=== PATIENT | female | born 1945 | race Caucasian/White ===

== ENCOUNTER 2016-05-11 14:27 | Inpatient (IN) | payer MEDICARE, OTHER ==
[~2016-05-11] VITALS: Ht 165.1 cm; Wt 70.3 kg
[~2016-05-11 14:27] MED LIST: CARAFATE1 G PO; HYDROCODONE-APA1 TAB PO; PEPCID20 MG PO; PHENERGAN25 M1 PO; PRILOSEC20 MG PO; PRINIVIL20 MG PO; VOLTAREN75 MG PO
--- NOTE | 2016-05-11 14:30 | NUR ---
RECEIVED TO ROOM 2212 AT THIS TIME FROM [facility] VIA [employer]. PT AMBULATED TO THE STRETCHER WITHOUT ISSUE. ASSISTED INTO HOSPITAL GOWN. ASSESSMENT AND HISTORY OBTAINED PER FLOWSHEET. VITAL SIGNS STABLE. DENIES NEEDS AT THIS TIME. CALL LIGHT IN REACH, ORIENTED PT TO ROOM AND NURSING UNIT. WILL CONTINUE WITH PLAN OF CARE.
[2016-05-11] MEDS ORDERED: MAGNESIUM OXID250 MG PO (14:38)
[2016-05-11] MEDS ORDERED: MELATONIN5 MG PO (14:38)
[2016-05-11] MEDS ORDERED: OMEPRAZOLE40 MG PO (14:39)
[2016-05-11 14:57] VITALS: BP 155/74; BMI 25.8
--- NOTE | 2016-05-11 16:26 | NUR ---
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 IV TO LEFT FOREARM PATENT. DENIES NEEDS AT PRESENT TIME. CALL LIGHT IN REACH, WILL CONTINUE WITH PLAN OF CARE.
--- NOTE | 2016-05-11 16:47 | NUR ---
VISITORS IN ROOM.PT WITHOUT DISTRESS.CALL LIGHT IN REACH
--- NOTE | 2016-05-11 19:15 | NUR ---
BEDSIDE REPORT RECEIVED AND CARE OF PT ASSUMED. PT LYING IN SUPINE POSITION VISITING WITH FAMILY MEMBERS. IV IN LEFT FA PATENT WITH NS INFUSING AT 125 ML / HR. COMPLAINT EVALUATION SUPERVISOR / DILAUDID IN USE FOR PAIN CONTROL. WILL MONITOR CLOSELY FOR NEEDS. CALL LIGHT WITHIN REACH.
[2016-05-11 20:48] VITALS: BP 132/60
--- NOTE | 2016-05-11 22:19 | NUR ---
HS MEDICATIONS GIVEN. WILL CONTINUE TO MONITOR FOR NEEDS.
--- NOTE | 2016-05-12 02:40 | NUR ---
PT RESTING IN SUPINE POSITION WITH EYES CLOSED AND UNLABORED BREATING. SIDE RAILS UP X2 FOR SAFETY.
[2016-05-12 04:27] VITALS: BP 143/57
[2016-05-12 06:33] LABS: ANION GAP 11.1 mmol/L (8-16); CALCIUM 8.3 mg/dL (8.5-10.1); CARBON DIOXIDE 26.5 mmol/L (21.0-32.0); MAGNESIUM - SERUM 2.1 mg/dL (1.8-2.4); PHOSPHOROUS 4.1 mg/dL (2.5-4.9); POTASSIUM - SERUM 3.6 mmol/L (3.5-5.1)
[2016-05-12 07:17] LABS: BASOPHILS 0.4 % (0.0-2.0); EOSINOPHILS 1.4 % (0-7); HEMATOCRIT 33.2 % (36.0-48.0); HEMOGLOBIN 10.6 g/dL (12-16); IMMATURE GRANULOCYTES 0.1 % (0-5); LYMPHOCYTES 23.4 % (15-50); MCH 29.9 pg (26.0-34.0); MCHC 31.9 g/dL (31.0-37.0); MCV 93.5 fL (80.0-100.0); MEAN PLATELET VOLUME 10.6 fL (7.4-10.4); MONOCYTES 14.8 % (2-11); NEUTROPHILS 59.9 % (40-80); RBC 3.55 10x6/uL (4.00-5.40); RDW 14.5 % (11.5-14.5); WBC 7.6 10x3/uL (4.8-10.8)
--- NOTE | 2016-05-12 07:25 | NUR ---
PATIENT RECEIVED ALERT IN LOW CAPUTO POSITION WATCHING TV. RESPIRATIONS EVEN AND UNLABORED. DENIES NEEDS. SIDE RAILS UP X2. BED IN LOW POSITION. CALL LIGHT AND LINING CLEANER BUTTON IN REACH.
[2016-05-12 07:35] LABS: PLATELET COUNT 206 10x3/uL (130-400)
[2016-05-12 08:07] VITALS: BP 146/60
--- NOTE | 2016-05-12 09:15 | NUR ---
PATIENT IN MID CAPUTO POSITION RESTING WITH EYES CLOSED. RESPIRATIONS EVEN AND UNLABORED. SIDE RAILS UP X2. BED IN LOW POSITION. CALL LIGHT IN REACH.
[2016-05-12 11:56] VITALS: BP 143/63
--- NOTE | 2016-05-12 12:00 | NUR ---
PATIENT ALERT IN BED WITH CELL PHONE IN HAND. DENIES NEEDS. SIDE RAILS UP X2. BED IN LOW POSITION. CALL LIGHT IN REACH.
[2016-05-12 12:04] VITALS: Ht 165.1 cm; Wt 70.3 kg
--- NOTE | 2016-05-12 15:00 | NUR ---
PATIENT SITTING UP IN CHAIR AT BEDSIDE WITH FAMILY PRESENT. SCHEDULED MEDICATION ADMINISTERED. DENIES NEEDS. CALL LIGHT IN REACH.
--- NOTE | 2016-05-12 15:13 | NUR ---
ALERT IN BED WATCHING TV. RESPIRATIONS EVEN AND UNLABORED. SCHEDULED MEDICATION ADMINISTERED. WANTING ICE CHIPS OR SOMETHING TO DRINK. WILL AWAIT PHYSICIAN FOR ORDERS. BED IN LOW POSITION. CALL LIGHT IN REACH. SIDE RAILS UP X2
[2016-05-12 15:37] VITALS: BP 155/69
--- NOTE | 2016-05-12 16:53 | NUR ---
C/O HEADACHE. TYLENOL PER PRN ORDER. DENIES FURTHER NEEDS. SIDE RAILS UP X2. BED IN LOW POSITION. CALL LIGHT IN REACH.
[2016-05-12 20:00] VITALS: BP 170/76
[2016-05-13] VITALS: BP 174/69
--- NOTE | 2016-05-13 00:26 | NUR ---
PT CONTINUES TO BE NAUSEATED. HAVE GIVEN ZOFRAN TWICE THIS SHIFT. REPORTS ONE EPISODE OF ACID REFLUX. DENIES PAIN. BP'S RUNNING HIGH. GIVING VASOTEC PRN ORDERED. WILL CONTINUE TO MONITOR.
[2016-05-13 05:41] LABS: BASOPHILS 0.3 % (0.0-2.0); EOSINOPHILS 1.3 % (0-7); HEMATOCRIT 35.2 % (36.0-48.0); HEMOGLOBIN 11.3 g/dL (12-16); IMMATURE GRANULOCYTES 0.3 % (0-5); LYMPHOCYTES 22.6 % (15-50); MCH 29.8 pg (26.0-34.0); MCHC 32.1 g/dL (31.0-37.0); MCV 92.9 fL (80.0-100.0); MEAN PLATELET VOLUME 10.9 fL (7.4-10.4); NEUTROPHILS 65.5 % (40-80); PLATELET COUNT 224 10x3/uL (130-400); RBC 3.79 10x6/uL (4.00-5.40); WBC 9.1 10x3/uL (4.8-10.8)
[2016-05-13 05:57] LABS: ANION GAP 17.6 mmol/L (8-16); CALCIUM 8.7 mg/dL (8.5-10.1); CARBON DIOXIDE 21.5 mmol/L (21.0-32.0); CREATININE - SERUM 1.1 mg/dL (0.6-1.3); POTASSIUM - SERUM 4.1 mmol/L (3.5-5.1)
--- NOTE | 2016-05-13 07:15 | NUR ---
REPORT RECEIVED FROM ANNA MARIE GOYAL. CALL LIGHT IN REACH.
[2016-05-13 08:55] VITALS: BP 168/71
--- NOTE | 2016-05-13 09:48 | NUR ---
ASSESSMENT COMPLETED. AM MEDS ADMINISTERED. CALL LIGHT IN REACH. WILL CONTINUE WITH PLAN OF CARE.
--- NOTE | 2016-05-13 10:25 | NUR ---
NO NEEDS VOICED AT THIS TIME. CALL LIGHT IN REACH.
[2016-05-13 11:58] VITALS: BP 170/74
--- NOTE | 2016-05-13 12:25 | NUR ---
IV TYLENOL ADMINISTERED PER ORDER. FAMILY IN ROOM. CALL LIGHT IN REACH.
--- NOTE | 2016-05-13 12:33 | NUR ---
AFRIN NASAL SPRAY PER PATIENT REQUEST.
--- NOTE | 2016-05-13 14:20 | NUR ---
DENIES NEEDS AT THIS TIME. CALL LIGHT IN REACH.
--- NOTE | 2016-05-13 14:41 | NUR ---
Patient Name: CHASTITY ZAVALA Admission Status: Elective Accout number: [id number] Admission Date: 05-11-2016 : 1945 Admission Diagnosis: Attending: KARON Current LOS: 2 Anticipated DC Date: 05-14-2016 Planned Disposition: Home or Self Care Primary Insurance: MEDICARE A & B Discharge Planning Comments: CM met with patient to discuss discharge planning/needs. The patient's plan is to discharge home where she resides alone in a single story home with 1 step. She states she is independent of all ADL's and denies the need for HH/DME supplies at this time. The patient states her home environment is safe to return to. Her transportation home will be "Ida Flynn" ([phone]). CM will continue to follow and assist with discharge planning/needs. Banana Loader: Rashida Magallanes Is the patient Alert and Oriented? Yes 0 * How many steps to enter\\exit or inside your home? 1 0 * PCP Dr. Hand ([place]) 0 * Pharmacy [facility] ([place]) [phone] 0 * Preadmission Environment Home Alone 0 * ADLs Independent 0 * Equipment None 0 * List name and contact numbers for known caregivers / representatives who currently or will assist patient after discharge: Ida Flynn ([id number]) [phone] Wandy Peters (sister) [phone] 0 * Community resources currently utilized None 0 * Additional services required to return to the preadmission environment? No 0 * Can the patient safely return to the preadmission environment? Yes 0 * Has this patient been hospitalized within the prior 30 days at any hospital? No 0 Grand Total: 0
[2016-05-13 14:56] VITALS: BP 174/72
--- NOTE | 2016-05-13 15:39 | NUR ---
RESTING,WITHOUT SIGNS OF DISTRESS.CALL LIGHT IN REACH
--- NOTE | 2016-05-13 17:51 | NUR ---
MEDS ADMINISTERED PER ANNA MARIE GOYAL.
--- NOTE | 2016-05-13 19:43 | NUR ---
SKEIN MERCERIZING MACHINE OPERATOR DC'D PER MD ORDER. NO OTHER CHANGES IN INIITAL ASSESSMENT. STILL REFUSES SCDs. CALL LIGHT IN REACH. WILL CONTINUE WITH PLAN OF CARE.
[2016-05-13 20:00] VITALS: BP 192/89
--- NOTE | 2016-05-13 20:10 | NUR ---
ASSESSMENT COMPLETED, NO ACUTE DISTRESS NOTED, DENIES PAIN OR NEEDS AT THIS TIME, FALL PRECAUTIONS IN PLACE, CL IN REACH, WILL MONITOR
--- NOTE | 2016-05-13 20:58 | NUR ---
PRN VASOTEC GIVEN FOR MANUAL BP OF 196/102 ALONG WITH SCHEDULED MELATONIN, NO ACUTE DISTRESS NOTED, WILL MONITOR, CL IN REACH
--- NOTE | 2016-05-13 22:05 | NUR ---
PRN NORCO, ZOFRAN AND AFRIN GIVEN PER MAY FOR C/O PAIN 06/13, NAUSEA AND NASAL CONGESTION, LYDIA WELL, CL IN REACH
--- NOTE | 2016-05-13 23:36 | NUR ---
RESTING WITH EYES CLOSED, RESP WITH EASE, NO DISTRESS NOTED, FALL PRECAUTIONS IN PLACE, CL IN REACH
[2016-05-14] VITALS: BP 182/79
[2016-05-14 04:00] VITALS: BP 156/82
[2016-05-14 06:14] LABS: BASOPHILS 0.4 % (0.0-2.0); EOSINOPHILS 3.4 % (0-7); HEMATOCRIT 35.4 % (36.0-48.0); HEMOGLOBIN 11.7 g/dL (12-16); IMMATURE GRANULOCYTES 0.1 % (0-5); LYMPHOCYTES 23.6 % (15-50); MCH 29.8 pg (26.0-34.0); MCHC 33.1 g/dL (31.0-37.0); MONOCYTES 12.8 % (2-11); NEUTROPHILS 59.7 % (40-80); PLATELET COUNT 206 10x3/uL (130-400); RBC 3.93 10x6/uL (4.00-5.40); RDW 13.6 % (11.5-14.5)
[2016-05-14 06:18] LABS: MCV 90.1 fL (80.0-100.0)
[2016-05-14 06:28] LABS: ANION GAP 15.3 mmol/L (8-16); CALCIUM 8.7 mg/dL (8.5-10.1); CARBON DIOXIDE 22.9 mmol/L (21.0-32.0); CREATININE - SERUM 0.9 mg/dL (0.6-1.3); POTASSIUM - SERUM 3.2 mmol/L (3.5-5.1)
--- NOTE | 2016-05-14 07:32 | NUR ---
PATIENT RESTING IN BED. PATIENT IS AWAKE, ALERT, AND ORIENTED X4. NO COMPLAINTS OF PAIN AT PRESENT TIME. PATIENT DENIES ANY NEEDS AT PRESENT TIME. CALL LIGHT IN PATIENT'S REACH. WILL MONITOR PATIENT.
[2016-05-14 07:41] VITALS: BP 156/82
--- NOTE | 2016-05-14 08:20 | NUR ---
PATIENT SITTING UP IN BED. PATIENT IS AWAKE, ALERT, AND ORIENTED X4. PATIENT DENIES ANY PAIN AT PRESENT TIME. SCHEDULED LISINOPRIL GIVEN TO PATIENT. PATIENT TOLERATED WELL. ASSESSMENT COMPLETED. SEE FLOWSHEET FOR DETAILS. IV SITE PATENT WITHOUT ANY S/S OF INFECTION IN PATIENT'S LEFT WRIST. PATIENT DENIES ANY NEEDS AT PRESENT TIME. CALL LIGHT IN PATIENT'S REACH. WILL CONTINUE TO MONITOR PATIENT.
[2016-05-14 08:49] VITALS: BP 164/71
[2016-05-14] MEDS ORDERED: NEXIUM40 MG PO (09:06)
--- NOTE | 2016-05-14 11:39 | NUR ---
PATIENT'S SALINE LOCK DC'D WITH CATHETER TIP STILL INTACT. PATIENT TOLERATED WELL. DISCHARGE INSTRUCTIONS VERBALIZED TO PATIENT. PATIENT VERBALIZED UNDERSTANDING AND SIGNED DISCHARGE INSTRUCTION SHEETS. PATIENT WAITING ON HER RIDE HOME.
--- NOTE | 2016-05-14 12:30 | NUR ---
PATIENT SITTING UP IN A CHAIR. PATIENT'S FRIEND HERE TO DRIVE PATIENT HOME. PATIENT TRANSFERRED VIA WHEELCHAIR TO THE CAR.
--- NOTE | 2016-06-03 13:21 | DS ---
PATIENT:CHASTITY ZAVALA :41 MEDICAL RECORD: [id number] DISCHARGE SUMMARY ADMISSION DATE: 05/11/16 DISCHARGE DATE: 05/14/16 DATE OF ADMISSION: 05/11/2016 DATE OF DISCHARGE: 05/14/2016 ADMISSION DIAGNOSES: 1. Perforated viscus. 2. Peptic ulcer disease. 3. Hypertension. DISCHARGE DIAGNOSES: 1. Perforated viscus. 2. Peptic ulcer disease. 3. Hypertension. PROCEDURES: None. CONSULTATIONS: None. REPORT OF HOSPITALIZATION: The patient was admitted to our facility and transferred from [facility] where CT scan was performed, which showed evidence of what appeared to be a perforated viscus near the patient's GE junction. The patient had a history of a Amanda fundoplication over a year prior. Upon admission to the hospital, the patient underwent a stat upper GI with barium swallow and it showed no sign of any upper abdominal leakage. The patient was maintained n.p.o. and on IV fluids with IV antibiotics. The patient states she takes decent amount of NSAIDs and thinking this might have been a perforated duodenal ulcer. Her history involved pain in the abdomen, which improved with eating. She was started on IV Protonix and placed on her home blood pressure medications. By the next day, she was having bowel movements with no blood. She was feeling better and had no signs of any recurrent regression in her course. The patient had a little bit of nausea. The following evening, but continued to have multiple bowel movements. She was then started on clear liquid diet, which she tolerated well. She was able to advance to pureed diet and we decided to discharge her home on Nexium. She was told to avoid NSAIDs if at all possible and we would see her in a couple of weeks in clinic to discuss performing an EGD at a later date. DISCHARGE INSTRUCTIONS: She will return to clinic or call with any questions or concerns, fevers, chills, nausea, vomiting or worsening abdominal pain. ACTIVITIES: As tolerated. FOLLOWUP: In clinic with me in 2-3 weeks. DISCHARGE MEDICATIONS: Resume home medications with the inclusion of Nexium. TRANSINT:[id number] Voice Confirmation ID: [id number] DOCUMENT ID: [id number] DISCHARGE SUMMARY REPORT [id number] CHASTITY ZAVALA CHRISTIAN MD at 1324 CC: [id number] DICTATION DATE: 05/31/16 1550 STERILIZATION TECHNICIAN: 06/01/16 0330 DIS IN 05/14/16 [facility] [address] [id number]
== END 2016-05-14 12:30 | disposition home or self-care (01) | DRG 382 ==
LOC: D.SDCHOLD 14:27 → D.MS 15:53
PROVIDERS: ADMIT Surgery
DX: K26.5 Chronic or unspecified duodenal ulcer with perforation (principal); I10 Essential (primary) hypertension; R68.81 Early satiety

== ENCOUNTER 2016-06-24 06:11 | Day surgery (SDC) | payer MEDICARE, OTHER ==
[~2016-06-24] VITALS: Ht 165.1 cm; Wt 69.1 kg
--- NOTE | ~2016-06-24 | OP ---
PATIENT NAME: CHASTITY ZAVALA MEDICAL RECORD: [id number] :41 LOCATION:D.OPS ADMISSION DATE: SURGEON: JUAN LIRA MD DATE OF OPERATION: 06/24/2016 PREOPERATIVE DIAGNOSES: 1. Peptic ulcer disease. 2. History of gastroesophageal reflux disease status post Amanda fundoplication. 3. Hypertension. 4. Arthritis. POSTOPERATIVE DIAGNOSES: 1. Gastritis. 2. History of gastroesophageal reflux disease status post Amanda fundoplication. 3. Hypertension. 4. Arthritis. 5. Retained food bolus. PROCEDURE: Esophagogastroduodenoscopy with biopsy. SURGEON: Juan Lira M.D. REPORT OF PROCEDURE: The patient was given propofol and an Olympus endoscope was advanced through the mouth and esophagus. The esophagus appeared normal. I was able to easily pass through the GE junction and there was just some mild inflammatory changes present distally. As we passed through the previous Amanda wrap, we entered the stomach and saw there was a large amount of food still present within the stomach. We were able to pass through the pylorus and into the second portion of the duodenum. Again, there was some food that was present in the proximal duodenum, but no ulcers were visualized. There were some inflammatory changes to the duodenum and a biopsy was performed. There are no ulcerations or masses visible. As we backed up, another biopsy was taken near the pylorus. As we inspected the stomach, there were no masses or lesions visible, but just a large amount of food bolus, which was present. This was irrigated free so I can as much the lumen as possible. Retroflexed view showed the wrap to be in good position and did not appear to be loose at all. As we backed up into the distal esophagus, another biopsy was performed of the distal esophageal tissue. Close inspection showed just a little bit ulceration visible, but no other signs of inflammation. At this point, the insufflation was removed followed by the endoscope. COMPLICATIONS: None. CONDITION: Stable. ANESTHESIA: TIVA. BLOOD LOSS: Minimal. TRANSINT:[id number] Voice Confirmation ID: [id number] DOCUMENT ID: [id number] OPERATIVE REPORT [id number] CHASTITY ZAVALA JUAN LIRA MD CC: JAY JAY CORRALES MD and COURTNEY WOODS [id number] DICTATION DATE: 06/24/16 0941 STUNT WOMAN: 06/24/16 1221 [facility] [address] [facility], [facility]
[~2016-06-24 06:11] MED LIST changes: +MAGNESIUM OXID250 MG PO; +MELATONIN5 MG PO; +NEXIUM40 MG PO; +OMEPRAZOLE40 MG PO
[2016-06-24 06:58] LABS: BASOPHILS 0.9 % (0.0-2.0); EOSINOPHILS 3.7 % (0-7); HEMATOCRIT 35.9 % (36.0-48.0); HEMOGLOBIN 11.4 g/dL (12-16); IMMATURE GRANULOCYTES 0.1 % (0-5); LYMPHOCYTES 24.1 % (15-50); MCH 30.1 pg (26.0-34.0); MCHC 31.8 g/dL (31.0-37.0); MCV 94.7 fL (80.0-100.0); MONOCYTES 13.5 % (2-11); NEUTROPHILS 57.7 % (40-80); PLATELET COUNT 232 10x3/uL (130-400); RBC 3.79 10x6/uL (4.00-5.40); RDW 14.8 % (11.5-14.5); WBC 6.8 10x3/uL (4.8-10.8)
[2016-06-24 07:08] LABS: ANION GAP 13.7 mmol/L (8-16); CALCIUM 8.9 mg/dL (8.5-10.1); CARBON DIOXIDE 26.4 mmol/L (21.0-32.0); POTASSIUM - SERUM 4.1 mmol/L (3.5-5.1)
[2016-06-24] MEDS ORDERED: PROBIOTIC1 EAC1 PO (07:38)
[2016-06-24] MEDS ORDERED: MULTIPLE VITAMI1 TA1 PO (07:38)
[2016-06-24 07:47] VITALS: BP 159/70; Ht 165.1 cm; Wt 69.1 kg
== END 2016-06-24 10:50 | disposition home or self-care (01) ==
LOC: D.OPS 06:11
PROVIDERS: Surgery
DX: K27.9 Peptic ulcer, site unspecified, unspecified as acute or chronic, without hemorrhage or perforation (principal); I10 Essential (primary) hypertension; M19.90 Unspecified osteoarthritis, unspecified site; K21.9 Gastro-esophageal reflux disease without esophagitis; T18.2XXA Foreign body in stomach, initial encounter; Z01.812 Encounter for preprocedural laboratory examination

== ENCOUNTER → 2016-07-05 10:43 | Outpatient (CLI) | payer MEDICARE, OTHER ==
[2016-06-24 07:47] VITALS: BMI 25.3
[~2016-07-05 10:43] MED LIST changes: +MULTIPLE VITAMI1 TA1 PO; +PROBIOTIC1 EAC1 PO
== END | disposition home or self-care (01) ==
LOC: D.NM 10:43
DX: R93.3 Abnormal findings on diagnostic imaging of other parts of digestive tract (principal)